=== PATIENT | female | born 1995 | race Hispanic/Latino ===

== ENCOUNTER 2017-08-25 10:55 | Emergency (ER) | payer MEDICAID, OTHER | END 2017-08-25 12:13 | disposition home or self-care (01) | LOC: EDH 10:55 | DX: O20.0 Threatened abortion (principal); Z3A.01 Less than 8 weeks gestation of pregnancy | CPT/HCPCS: 36415; 76801; 84702; 86900; 86901 ==

== ENCOUNTER 2017-10-11 20:37 | Emergency (ER) | payer MEDICAID ==
[2017-10-11 21:34] LABS: BILIRUBIN,URINE Negative (NEGATIVE); COLOR,URINE Yellow (YELLOW); GLUCOSE, URINE (UA) Negative (NEGATIVE); KETONES,URINE Trace mg/dL (NEGATIVE); LEUKOCYTE ESTERASE ,URINE Trace (NEGATIVE); NITRATE,URINE Negative (NEGATIVE); OCCULT BLOOD,URINE Large (NEGATIVE); PROTEIN,URINE POS 1+ (NEGATIVE)
[2017-10-11 21:35] LABS: APPEARANCE,URINE SLIGHTLY CLOUDY (CLEAR)
[2017-10-11 21:46] LABS: BASOPHILS % (AUTO) 1.5 % (0.0-5.0); EOSINOPHILS % (AUTO) 1.3 % (0.0-8.0); HEMATOCRIT 38.7 % (36-48); LYMPHOCYTES % (AUTO) 19.5 % (21.0-51.0); MEAN CORPUSCULAR HEMOGLOBIN 29.5 pg (27.0-33.0); MEAN CORPUSCULAR VOLUME 86.9 fL (79-99); MONOCYTES % (AUTO) 7.5 % (3.0-13.0); NEUTROPHILS % (AUTO) 70.2 % (40.0-77.0); PLATELET COUNT (AUTO) 238 K/uL (130-400); RED BLOOD CELL COUNT(AUTO) 4.45 MIL/uL (4.00-5.50); RED CELL DISTRIBUTION WIDTH 13.7 % (11.0-15.5); WHITE BLOOD COUNT (AUTO) 12.3 K/uL (4.8-10.8)
[2017-10-11 22:00] LABS: BACTERIA,URINE Moderate /HPF (None Seen); SQUAMOUS EPITHELIAL CELL,UR Few /HPF (0-2)
== END 2017-10-11 22:35 | disposition home or self-care (01) ==
LOC: EDH 20:37
DX: O20.0 Threatened abortion (principal); Z3A.14 14 weeks gestation of pregnancy; Z79.899 Other long term (current) drug therapy
CPT/HCPCS: 36415; 76801; 81001; 84702; 85025

== ENCOUNTER 2018-02-23 22:19 | Observation (INO) | payer MEDICAID ==
[~2018-02-23] VITALS: Ht 157.5 cm; Wt 115.7 kg
[2018-02-23 23:08] LABS: APPEARANCE,URINE CLEAR (CLEAR); BILIRUBIN,URINE NEGATIVE (NEGATIVE); COLOR,URINE YELLOW (YELLOW); GLUCOSE, URINE (UA) NEGATIVE (NEGATIVE); KETONES,URINE 5 mg/dL (NEGATIVE); LEUKOCYTE ESTERASE ,URINE NEGATIVE (NEGATIVE); NITRATE,URINE NEGATIVE (NEGATIVE); OCCULT BLOOD,URINE SMALL (NEGATIVE); PROTEIN,URINE TRACE (NEGATIVE)
[2018-02-23 23:14] LABS: BACTERIA,URINE Few /HPF (None Seen); MUCUS,URINE Moderate LPF (None Seen); RBC,URINE 0-1 /HPF (0-1); SQUAMOUS EPITHELIAL CELL,UR Many /HPF (0-2)
[2018-02-23 23:18] LABS: AMPHET/METH SCREEN,URINE NEGATIVE (NEGATIVE); BARBITURATE SCREEN, URINE NEGATIVE (NEGATIVE); BENZODIAZEPINES SCREEN,URINE NEGATIVE (NEGATIVE); CANNABINOID SCREEN,URINE NEGATIVE (NEGATIVE); COCAINE SCREEN,URINE NEGATIVE (NEGATIVE); OPIATE SCREEN,URINE NEGATIVE (NEGATIVE); PHENCYCLIDINE SCREEN,URINE NEGATIVE (NEGATIVE)
[2018-02-24] MEDS ORDERED: TERBUTALINE SULFATE VIAL 1MG/ML SQ ONE (00:13)
[2018-02-24] MEDS ORDERED: LACTATED RINGERS 1000ML 1,000 ML IV SCH (00:15)
[2018-02-24] MEDS ORDERED: TERBUTALINE SULFATE VIAL 1MG/ML SQ SCH (00:15)
== END 2018-02-24 02:10 | disposition home or self-care (01) ==
LOC: EDH 22:19 → LDH 22:20
PROVIDERS: ADMIT Obstetrics & Gynecology; ATTEND Obstetrics & Gynecology
DX: O26.893 Other specified pregnancy related conditions, third trimester (principal); R10.32 Left lower quadrant pain; O99.323 Drug use complicating pregnancy, third trimester; F12.10 Cannabis abuse, uncomplicated; Z3A.36 36 weeks gestation of pregnancy; Z79.899 Other long term (current) drug therapy
CPT/HCPCS: 80305; 81001; 96372; 99285; G0378 ×4; J3105; 96360; 96361

== ENCOUNTER 2018-03-26 18:05 | Observation (INO) | payer MEDICAID ==
[~2018-03-26] VITALS: Ht 167.6 cm; Wt 112.5 kg
[2018-03-26] MEDS ORDERED: LACTATED RINGERS 1000ML 1,000 ML IV SCH (18:30)
[2018-03-26 18:39] LABS: APPEARANCE,URINE Cloudy (CLEAR); BILIRUBIN,URINE Small (NEGATIVE); COLOR,URINE Dark Yellow (YELLOW); GLUCOSE, URINE (UA) Negative (NEGATIVE); KETONES,URINE 40 mg/dL (NEGATIVE); LEUKOCYTE ESTERASE ,URINE Trace (NEGATIVE); NITRATE,URINE Negative (NEGATIVE); OCCULT BLOOD,URINE Small (NEGATIVE); PROTEIN,URINE Trace (NEGATIVE)
[2018-03-26 18:47] LABS: AMPHET/METH SCREEN,URINE NEGATIVE (NEGATIVE); BARBITURATE SCREEN, URINE NEGATIVE (NEGATIVE); BENZODIAZEPINES SCREEN,URINE NEGATIVE (NEGATIVE); CANNABINOID SCREEN,URINE NEGATIVE (NEGATIVE); COCAINE SCREEN,URINE NEGATIVE (NEGATIVE); OPIATE SCREEN,URINE NEGATIVE (NEGATIVE); PHENCYCLIDINE SCREEN,URINE NEGATIVE (NEGATIVE)
[2018-03-26 18:50] LABS: BACTERIA,URINE Moderate /HPF (None Seen); MUCUS,URINE Many LPF (None Seen); SQUAMOUS EPITHELIAL CELL,UR 30-50 /HPF (0-2); WBC,URINE 0-1 /HPF (0-1)
[2018-03-26 19:44] VITALS: BP 129/70
[2018-03-26] MEDS ORDERED: LACTATED RINGERS 1000ML IV PRN (19:45)
[2018-03-26] MEDS: PROMETHAZINE HCL 25 MG/ML 1ML AMPULE IM SCH ×3 (19:45→20:10)
[2018-03-26] MEDS ORDERED: METOCLOPRAMIDE 10 MG/2 ML VIAL IVP SCH (19:45)
== END 2018-03-26 22:15 | disposition home or self-care (01) ==
LOC: EDH 18:05 → LDH 18:06
PROVIDERS: ADMIT Obstetrics & Gynecology; ATTEND Obstetrics & Gynecology
DX: O21.2 Late vomiting of pregnancy (principal); O99.343 Other mental disorders complicating pregnancy, third trimester; F12.90 Cannabis use, unspecified, uncomplicated; Z3A.37 37 weeks gestation of pregnancy; Z79.899 Other long term (current) drug therapy
CPT/HCPCS: 80305; 81001; 96361; 96374; 99284; G0378 ×4; J2550; J2765; 96360

== ENCOUNTER 2019-04-18 14:32 | Emergency (ER) | payer MEDICAID, OTHER ==
[2019-04-18] MEDS ORDERED: MECLIZINE HCL 25 MG TABLET ONE (16:03)
== END 2019-04-18 17:51 | disposition home or self-care (01) ==
LOC: EDH 14:32
DX: H81.399 Other peripheral vertigo, unspecified ear (principal)
CPT/HCPCS: 99282

== ENCOUNTER 2019-04-20 10:24 | Emergency (ER) | payer SELFPAY ==
[2019-04-20 10:54] LABS: BASOPHILS % (AUTO) 0.3 % (0.0-5.0); EOSINOPHILS % (AUTO) 0.8 % (0.0-8.0); HEMATOCRIT 37.6 % (36-48); LYMPHOCYTES % (AUTO) 23.2 % (21.0-51.0); MEAN CORPUSCULAR HEMOGLOBIN 24.9 pg (27.0-33.0); MEAN CORPUSCULAR HGB CONC 30.9 g/dL (32.0-36.0); MEAN CORPUSCULAR VOLUME 80.9 fL (79-99); MONOCYTES % (AUTO) 5.4 % (3.0-13.0); NEUTROPHILS % (AUTO) 70.1 % (40.0-77.0); PLATELET COUNT (AUTO) 265 K/uL (130-400); RED BLOOD CELL COUNT(AUTO) 4.65 MIL/uL (4.00-5.50); RED CELL DISTRIBUTION WIDTH 13.8 % (11.0-15.5); WHITE BLOOD COUNT (AUTO) 9.6 K/uL (4.8-10.8)
[2019-04-20 11:14] LABS: CREATININE 0.8 mg/dL (0.5-1.5); POTASSIUM 3.5 mmol/L (3.5-5.1)
[2019-04-20 11:14] LABS: APPEARANCE,URINE Clear (CLEAR); BILIRUBIN,URINE Negative (NEGATIVE); COLOR,URINE Yellow (YELLOW); GLUCOSE, URINE (UA) Negative (NEGATIVE); KETONES,URINE Negative (NEGATIVE); LEUKOCYTE ESTERASE ,URINE Negative (NEGATIVE); NITRATE,URINE Negative (NEGATIVE); OCCULT BLOOD,URINE Negative (NEGATIVE); PROTEIN,URINE Negative (NEGATIVE)
[2019-04-20 11:18] LABS: HCG,QUAL RESULT NEGATIVE (NEGATIVE)
[2019-04-20 11:19] LABS: ALBUMIN 3.4 g/dL (3.5-5.0); BILIRUBIN,TOTAL 0.3 mg/dL (0.2-1.0); TOTAL PROTEIN, SERUM 7.5 g/dL (6.0-8.3)
[2019-04-20 11:22] LABS: AMPHET/METH SCREEN,URINE NEGATIVE (NEGATIVE); BARBITURATE SCREEN, URINE NEGATIVE (NEGATIVE); BENZODIAZEPINES SCREEN,URINE NEGATIVE (NEGATIVE); CANNABINOID SCREEN,URINE NEGATIVE (NEGATIVE); COCAINE SCREEN,URINE NEGATIVE (NEGATIVE); OPIATE SCREEN,URINE NEGATIVE (NEGATIVE); PHENCYCLIDINE SCREEN,URINE NEGATIVE (NEGATIVE)
== END 2019-04-20 12:00 | disposition home or self-care (01) ==
LOC: EDH 10:24
DX: H81.392 Other peripheral vertigo, left ear (principal)
CPT/HCPCS: 36415; 80053; 80305; 81003; 81025; 85025; 96372

== ENCOUNTER 2020-12-29 05:28 | Emergency (ER) | payer MEDICAID, OTHER ==
[~2020-12-29] VITALS: Ht 172.7 cm; Wt 111.1 kg
[2020-12-29 05:37] VITALS: BP 121/79
[2020-12-29 05:48] LABS: HCG,QUAL RESULT POSITIVE (NEGATIVE)
[2020-12-29 05:49] LABS: APPEARANCE,URINE Clear (CLEAR); BILIRUBIN,URINE Negative (NEGATIVE); COLOR,URINE Yellow (YELLOW); GLUCOSE, URINE (UA) Negative (NEGATIVE); KETONES,URINE Negative (NEGATIVE); LEUKOCYTE ESTERASE ,URINE Negative (NEGATIVE); NITRATE,URINE Negative (NEGATIVE); OCCULT BLOOD,URINE Negative (NEGATIVE); PH,URINE 6.5 (5.0-8.0); PROTEIN,URINE Negative (NEGATIVE)
[2020-12-29] MEDS ORDERED: ACETAMINOPHEN 500 MG TABLET ONE (05:53)
== END 2020-12-29 06:40 | disposition home or self-care (01) ==
LOC: EDH 05:28
DX: O98.511 Other viral diseases complicating pregnancy, first trimester (principal); B34.9 Viral infection, unspecified; Z20.822 Contact with and (suspected) exposure to COVID-19; Z3A.08 8 weeks gestation of pregnancy; Z68.37 Body mass index [BMI] 37.0-37.9, adult
CPT/HCPCS: 81003; 81025; 87635; 87804 ×2; 87880; 99283; C9803

== ENCOUNTER 2024-09-15 10:28 | Emergency (ER) | payer SELFPAY ==
[~2024-09-15] VITALS: Ht 167.6 cm; Wt 115.7 kg
--- NOTE | 2024-09-15 11:02 | ERN ---
General Chief Complaint: Shoulder Injury/Pain Stated Complaint: RIGHT SHOULDER AND RIGHT HAND PAIN Time Seen by MD: 10:30 Time Seen by Midlevel: 10:30 Source: patient History of Present Illness Initial Comments 29-year-old female who presents to the emergency department due to right arm pain onset last night. States she notices her right arm with it swollen but denies any shortness of breath, chest pain or further associated symptoms. Patient denies any injuries, or trauma to of the right arm. Patient took Tylenol 30 minutes prior to arrival. Denies significant past medical history. Allergies: Coded Allergies: No Known Allergies (Unverified Allergy, Unknown, 02/23/18) Past Medical History Past Medical History: No Pertinent History Past Surgical History: BTL Family History Family History: HTN Social History Social History: Negative, Lives with family Female( History) : 3 Para: 2 ROS Dictation Constitutional: Negative for fever,chills, and weight loss Eyes: Negative for injury, pain,redness, and discharge ENT: Negative for injury,pain or swelling Cardiovascular: Negative for chest pain, palpitations, and edema Respiratory: Negative for shortness of breath, cough, and wheezing, Abdomen/GI: Negative for abdominal pain, nausea, vomiting, diarrhea, and constipation Back: Negative for injury and pain : Negative for painful urination, bleeding or discharge MS/Extremity: Positive for right arm pain Negative for injury and deformity Skin: Negative for rash, and discoloration Neuro: Negative for headache, weakness, numbness, tingling, and seizure Psych: Negative for suicide ideation, homicidal ideation, and hallucinations Physical Exam Physical Exam Dictation General: awake, alert, no acute distress Head/Face: Normocephalic, atraumatic Eyes: PERRL, EOMI, normal conjunctiva ENT: oral cavity clear, oral mucosa moist Neck: Supple, normal range of motion Cardiovascular: RRR, normal S1/S2 Respiratory: CTAB, no respiratory distress. Skin: Warm, dry, normal turgor, no rash MS/Extremity: Pulses equal, no cyanosis, neurovascular intact, FROM. Neuro: COAx4, GCS 15, strength 5/5, CN 2-12 intact, normal cerebellar exam, normal gait Psych: Normal behavior, mood, and affect normal Results EKG/XRAY/US/CT/MRI X-RAY Comment REASON: pain ORDERING PHYSICIAN: KATHY MICHEL PROCEDURE: FORARMR - FOREARM 2VWS RT FOREARM 2VWS RT INDICATION: pain TECHNIQUE: FOREARM 2VWS RT. FINDINGS AND IMPRESSION: No displaced fracture or dislocation is seen. Correlate clinically. There is mild soft tissue swelling No radiopaque foreign body is identified. DICTATED BY: NAHOMI ASHTON MD DATE: 09/15/24 1146 REASON: pain ORDERING PHYSICIAN: KATHY MICHEL PROCEDURE: SHOL 2V RT - SHOULDER COMP 2+VWS RT SHOULDER COMP 2+VWS RT INDICATION: pain TECHNIQUE: SHOULDER COMP 2+VWS RT. FINDINGS AND IMPRESSION: No displaced fracture or dislocation is seen. Correlate clinically. There is no joint effusion or soft tissue swelling. No radiopaque foreign body is identified. DICTATED BY: NAHOMI ASHTON MD DATE: 09/15/24 1151 Ultrasound Comment REASON: DVT ORDERING PHYSICIAN: KATHY MICHEL PROCEDURE: VENOUS UNI - US VENOUS DOPPLER UNILATERAL US VENOUS DOPPLER UNILATERAL INDICATION: Swelling. DVT TECHNIQUE: US VENOUS DOPPLER UNILATERAL Real-time venous Doppler ultrasound was performed using B mode, color flow and spectral analysis. FINDINGS: The visualized subclavian, axillary, cephalic, basilic and brachial veins demonstrate normal compressibility and flow without evidence of DVT. IMPRESSION: No evidence of DVT in the visualized right extremity. DICTATED BY: NAHOMI ASHTON MD DATE: 09/15/24 1152 [facility] MDM: Differential diagnosis: DVT, sprain, strain, carpal tunnel, cervical neuropathy Rationale: 29-year-old female who presents to the emergency department due to right arm pain onset last night. States she notices her right arm with it swollen but denies any shortness of breath, chest pain or further associated symptoms. Patient denies any injuries, or trauma to of the right arm. Patient took Tylenol 30 minutes prior to arrival. Denies significant past medical history. Per physical examination patient is in no acute distress, neurologically intact, no deformities of the right upper extremity, neurovascularly intact, no ecchymosis, no erythema. Venous ultrasound obtained of the right arm negative for DVT. Forearm and shoulder x-rays negative for acute abnormalities. Patient was educated on findings and diagnosis. Advised to follow up with PCP. Return to the emergency department if any worsening symptoms. Patient verbalized understanding. Patient stable for discharge. There are no social concerns with this patient. I independently interpreted the test that were performed, results were reviewed by me and considered findings on radiology if ordered. Medical management and examination interpretation discussions were had by me with other qualified healthcare professionals as indicated for the patient's care. ED Course Orders Procedure Category Date Status Time Us Venous Doppler US 09/15/24 Resulted Unilateral 10:35 Forearm 2vws Rt RAD 09/15/24 Resulted 10:35 Shoulder Comp 2+Vws Rt RAD 09/15/24 Resulted 10:35 Ketorolac PHA 09/15/24 Complete Tromethamine 15mg/Ml 12:30 Current Medications Medications (Trade) Dose Ordered Sig/Emiliano Route PRN Reason Start Time Stop Time Status Last Admin Dose Admin Ketorolac Tromethamine (toRADol) 15 mg ONCE ONCE IM 09/15/24 12:30 09/15/24 12:30 DC 09/15/24 12:20 Vital Signs Date Time Temp Pulse Resp B/P (MAP) Pulse Ox O2 Delivery O2 Flow Rate FiO2 09/15/24 12:23 98.1 80 16 117/78 99 Room Air* 0 21 09/15/24 10:36 98.1 81 18 121/80 99 Room Air* 0 21 09/15/24 10:30 98.1 81 18 121/80 99 Room Air 0 DX & DISP Disposition: Discharge Departure Impression: Primary Impression: Right arm pain Condition: Stable Additional Instructions: Discharge home. Rest. Follow up with primary care in 24 hours. Return to the ER for any acute changes or worsening symptoms. If any medications were prescribed take as directed. Okay to continue home medications unless otherwise discussed during your visit in the emergency room today. Patient was also advised to follow-up with primary care physician in 1 to 2 days for continued monitoring. Referrals: SELF,REFERRAL (PCP) I performed the substantive portion of the visit. I have reviewed and personally made and approve the management plan that is documented in the notes by myself or the AVERY. I acknowledge full responsibility for the patient's management plan. KATHY MICHEL Sep 15, 2024 11:02
--- NOTE | 2024-09-15 11:48 | HMCIMG ---
FOREARM 2VWS RT INDICATION: pain TECHNIQUE: FOREARM 2VWS RT. FINDINGS AND IMPRESSION: No displaced fracture or dislocation is seen. Correlate clinically. There is mild soft tissue swelling No radiopaque foreign body is identified.
--- NOTE | 2024-09-15 11:58 | HMCIMG ---
US VENOUS DOPPLER UNILATERAL INDICATION: Swelling. DVT TECHNIQUE: US VENOUS DOPPLER UNILATERAL Real-time venous Doppler ultrasound was performed using B mode, color flow and spectral analysis. FINDINGS: The visualized subclavian, axillary, cephalic, basilic and brachial veins demonstrate normal compressibility and flow without evidence of DVT. IMPRESSION: No evidence of DVT in the visualized right extremity.
--- NOTE | 2024-09-15 11:58 | HMCIMG ---
SHOULDER COMP 2+VWS RT INDICATION: pain TECHNIQUE: SHOULDER COMP 2+VWS RT. FINDINGS AND IMPRESSION: No displaced fracture or dislocation is seen. Correlate clinically. There is no joint effusion or soft tissue swelling. No radiopaque foreign body is identified.
[2024-09-15] MEDS: ketOROlac 15MG/ML VIAL (15MG/ML) IM ONE (12:20)
[2024-09-15 12:23] VITALS: BP 117/78; PULSE 80; RESP 16; TEMP 98.1; O2SAT 99
== END 2024-09-15 12:30 | disposition home or self-care (01) ==
LOC: EDH 10:28
DX: M79.601 Pain in right arm (principal); Z98.51 Tubal ligation status
CPT/HCPCS: 99285; 93971; 73090; 73030; 96372; J1885